=== PATIENT | male | born 1960 | race Caucasian/White ===

== ENCOUNTER → 2018-01-28 | Outpatient (CLI) | payer OTHER ==
[~2018-01-28] MED LIST: HYDROCODON-ACE1 EAC7 PO
--- NOTE | 2018-02-05 16:42 | PROC ---
[address] [address] PROCEDURE REPORT Name: WARDJAZMINEJAMI Room: [facility]#: [id number] Admission: 01/28/18 Attend Phys: Juan Pablo Vee MD Discharge: Date of : 60 Report #: [id number] THIS REPORT FOR: //name// CC: Juan Pablo Cardona DATE OF SERVICE: 01/28/2018 REFERRING PHYSICIANS: Include Dr. Henry, who is his primary care physician and also Dr. Ernetsine Rudolph as well as Dr. Cardona. PROCEDURE: Nasopharyngolaryngoscopy. PRIMARY SITE AND HISTOPATHOLOGY: The patient received chemotherapy and radiation therapy for a stage III, T2N1M0, supraglottic cancer. The radiation therapy was completed on 10/29/2016. [facility] phone is [phone]. FINDINGS: On nasopharyngolaryngoscopy, after application of 2% viscous lidocaine orally and then 2% viscous lidocaine to the right nostril via a cotton swab, there were no visible lesions in the nasopharynx, there were no visible lesions in the hypopharynx, there were no visible lesions in the supraglottic area. The true vocal cords were normally mobile bilaterally without any visible lesions. There is no evidence of head and neck cancer. <ELECTRONICALLY SIGNED> By: Juan Pablo Vee MD 02/05/18 1642 1207 [id number] Pablo Vee MD /nt
--- NOTE | 2018-02-05 17:48 | ONC ---
[address] [address] RADIATION ONCOLOGY NOTE Name: WARDJAZMINEJAMI Wyatt Room: [facility]#: [id number] Admission: 01/28/18 Attend Phys: Juan Pablo Vee MD Discharge: Date of : 60 Report #: [id number] THIS REPORT FOR: //name// CC: Juan Pablo Cardona DATE OF SERVICE: 01/28/2018 RADIATION ONCOLOGY FOLLOWUP NOTE REFERRING PHYSICIANS: Include Dr. Henry and Dr. Ernestine Rudolph and also Vinay Cardona DO. [facility] phone is [phone]. PRIMARY SITE AND HISTOPATHOLOGY: The patient received chemotherapy/radiation therapy for a stage III supraglottic cancer. The radiation therapy was completed on 10/29/2016. INTERVAL NOTE: The patient continues to eat a regular diet. He eats food such as hamburgers and spaghetti. SOCIAL HISTORY: The patient continues to smoke cigarettes. He smokes about 1-2 cigarettes a day. REVIEW OF SYSTEMS: RESPIRATORY: The patient was not short of breath during his appointment. MUSCULOSKELETAL: He had normal range of motion in his extremities. PHYSICAL EXAMINATION: VITAL SIGNS: The patient was 161.6 pounds on 01/28/2018, he was 160 pounds on 09/06/2017. On 01/28/2018, blood pressure was 144/94, pulse 71, respirations 18, oxygen saturation 98%. LYMPH NODES: He had no palpable cervical or supraclavicular lymphadenopathy. HEAD, EYES, EARS, NOSE, THROAT: Mouth had no suspicious visible lesions or suspicious palpable lesions. On nasopharyngolaryngoscopy after administration of a small amount of 2% viscous lidocaine orally and 2% viscous lidocaine via a cotton swab to the left nostril, there were no visible lesions in the nasopharynx. There were no visible lesions in the oropharynx. There were no visible lesions in the hypopharynx [place] [address] RADIATION ONCOLOGY NOTE Name: JAMI LOMAX Room: [facility]#: [id number] Admission: 01/28/18 Attend Phys: Juan Pablo Vee MD Discharge: Date of : 60 Report #: [id number] and the true vocal cords were normally mobile bilaterally without any visible lesions. HEART: Had a regular rate and rhythm without murmur. LUNGS: were clear to auscultation. ABDOMEN: Soft with positive bowel sounds. LABORATORY DATA: From 01/14/2018, white blood count was 7.3, hemoglobin 14.0, platelets 289,000. BUN 8, creatinine 0.92. Sodium 139, potassium 4.6. PSA was 1.6. The patient's last TSH was on 08/20/2017, was within normal limits at 2.453. RADIOLOGIC DATA: The patient had a PET/CT scan on 08/20/2017, which revealed stable mild uptake at the site of the prior tumor area, which could be inflammation in that area and he also had some mild activity in the left inguinal region and he also had bilateral femoral head avascular necrosis. ASSESSMENT AND PLAN: 1. History of supraglottic cancer- There is no evidence of supraglottic cancer at this time. The patient has an appointment with his medical oncologist, Dr. Rudolph in 04/2018. Dr. Rudolph ordered lab work and a neck and chest CT on 05/02/2018, and I gave the patient a requisition for a TSH level in 06/2018 or 07/2018 and the patient was asked to schedule a follow up appointment to see me afterwards. 2. Anxiety- The patient asked for a refill for clonazepam, so I prescribed enought to last him until he can see his primary care physician in about a month. 3. Dental care- The patient was given a prescription for dental gel fluoride. 4. Cigarette smoking- The patient was urged to completely quit smoking. 5. Avascular necrosis of hips. The patient indicated he saw the orthopedic surgeon, who I think was Dr. Garcia, and he is observing the patient since he is asymptomatic. Thank you for allowing me to participate in the care of this patient. <ELECTRONICALLY SIGNED> By: Juan Pablo Vee MD 02/05/18 1748 1328 [id number] Vee MD /nt
== END ==
LOC: M.RTH 01-26 09:15
DX: Z08 Encounter for follow-up examination after completed treatment for malignant neoplasm (principal); F41.9 Anxiety disorder, unspecified; F17.210 Nicotine dependence, cigarettes, uncomplicated; M87.9 Osteonecrosis, unspecified; Z85.21 Personal history of malignant neoplasm of larynx

== ENCOUNTER → 2018-05-27 | Outpatient (CLI) | payer OTHER ==
--- NOTE | 2018-06-23 02:00 | ONC ---
[place] [address] RADIATION ONCOLOGY NOTE Name: WARDJAZMINEJAMI Wyatt Room: [facility]#: [id number] Admission: 05/27/18 Attend Phys: Juan Pablo Vee MD Discharge: Date of : 60 Report #: [id number] THIS REPORT FOR: //name// CC: Juan Pablo Cardona DATE OF PROCEDURE: 05/27/2018 [facility] phone is [phone]. REFERRING PHYSICIANS: Nimo Henry DO, Ernestine Rudolph MD, Chris Guzman DO and Vinay Cardona DO. PRIMARY SITE AND HISTOPATHOLOGY: The patient received chemotherapy and radiation therapy for a stage III, T2N1M0, supraglottic cancer. The radiation therapy was completed on 10/29/2016. PROCEDURE: Nasopharyngolaryngoscopy. FINDINGS: On nasopharyngolaryngoscopy, after application of 2% viscous lidocaine orally and 2% viscous lidocaine to the right nostril via a cotton swab, there were no visible lesions in the nasopharynx. There were no visible lesions in the hypopharynx. There were no visible lesions in the supraglottic larynx. The true vocal cords were normally mobile bilaterally without any visible lesions. There was no evidence of head and neck cancer. Thank you for allowing me to participate in the care of this patient. <ELECTRONICALLY SIGNED> By: Juan Pablo Vee MD 06/23/18 0200 1247 [id number] Vee MD /nt
--- NOTE | 2018-06-23 02:09 | ONC ---
[address] [address] RADIATION ONCOLOGY NOTE Name: WARDJAZMINEJAMI Room: [facility]#: [id number] Admission: 05/27/18 Attend Phys: Juan Pablo Vee MD Discharge: Date of : 60 Report #: [id number] THIS REPORT FOR: //name// CC: Juan Pablo Henry DATE OF SERVICE: 05/27/2018 REFERRING PHYSICIANS: Dr. Henry; Dr. Chris Bo; Dr. Vinay Cardona and Ernestine Rudolph MD. [facility] phone is [phone]. PRIMARY SITE AND HISTOPATHOLOGY: The patient received chemotherapy and radiation therapy for a stage III supraglottic cancer. The radiation therapy was completed on 10/29/2016. INTERVAL NOTE: The patient was having some refered pain to his ear. He was eating a hot sauce and biscuits, which may have exacerbated some of these issues. He does take sometimes 2-3 supplements a day. He has a new job installing fence. He saw his dentist approximately at the end of 04/2018. SOCIAL HISTORY: The patient was continuing to smoke cigarettes. He smokes about 1-2 cigarettes a day. REVIEW OF SYSTEMS: RESPIRATORY: The patient was not short of breath during his appointment. MUSCULOSKELETAL: He had good range of motion in his upper extremities. PHYSICAL EXAMINATION: VITAL SIGNS: The patient weighed 162.2 pounds on 05/27/2018, 161.6 pounds on 01/28/2018. On 05/27/2018, blood pressure was 138/78, pulse 66. LYMPH NODES: No palpable cervical or supraclavicular lymphadenopathy. HEAD, EYES, EARS, NOSE AND THROAT: Mouth had no suspicious visible lesions or suspicious palpable lesions. On nasopharyngolaryngoscopy after administration of a small amount of 2% viscous lidocaine orally, 2% viscous lidocaine via a cotton swab to left nostril, there were no visible lesions in the nasopharynx. There were no visible lesions in the oropharynx. There were no visible lesions in the hypopharynx or supraglottic larynx. True vocal cords were normally mobile bilaterally without visible lesions. HEART: Had a regular rate and rhythm without murmur. LUNGS: Clear to auscultation. LABORATORY DATA: From 05/13/2018, TSH was elevated at 17.3 and so He was placed on 50 mcg of levothyroxine per [place] [address] RADIATION ONCOLOGY NOTE Name: JAMI LOMAX Room: [facility]#: [id number] Admission: 05/27/18 Attend Phys: Juan Pablo Vee MD Discharge: Date of : 60 Report #: [id number] with hypothyroidism. On 05/13/2018, his hemoglobin was 14.2, platelets 294,000, white blood cells were 8.2. Sodium 136, potassium 5.1, BUN 8, creatinine 1.14. AST was 22. ASSESSMENT AND PLAN: 1. History of supraglottic cancer-There is no evidence of supraglottic cancer at this time. He was given a requisition for a basic metabolic panel, neck CT in 08/2018 and he was asked to schedule a followup appointment to see me afterwards. 2. Hypothyroidism- The patient was started on 50 mcg of levothyroxine and TSH was ordered in about 08/2018 and he was asked to schedule a followup appointment to see me afterwards. 3. Dental care- The patient was given a prescription for 1.1% PreviDent gel. 4. Cigarette smoking- The patient was encouraged to quit smoking. Thank you for allowing me to participate in the care of this patient. <ELECTRONICALLY SIGNED> By: Juan Pablo Vee MD 06/23/18 0209 1253 1649Darand Vee MD /nt
== END ==
LOC: M.RTH 04:43
DX: Z08 Encounter for follow-up examination after completed treatment for malignant neoplasm (principal); E03.9 Hypothyroidism, unspecified; F17.210 Nicotine dependence, cigarettes, uncomplicated; Z85.21 Personal history of malignant neoplasm of larynx

== ENCOUNTER → 2018-12-16 | Outpatient (CLI) | payer OTHER ==
--- NOTE | ~2018-12-16 | ONC ---
[address] [address] RADIATION ONCOLOGY NOTE Name: JAMI LOMAX Room: [facility]#: [id number] Admission: 12/16/18 Attend Phys: Juan Pablo Vee MD Discharge: Date of : 60 Report #: [id number] THIS REPORT FOR: //name// CC: Juan Pablo Ramankkula DATE OF SERVICE: 12/16/2018 RADIATION ONCOLOGY FOLLOWUP NOTE REFERRING PHYSICIANS: Include Dr. Abby Li and Dr. Vinay Cardona that Dr. Ernestine Rudolph. [facility] phone is [phone]. PRIMARY SITE AND HISTOPATHOLOGY: The patient received chemotherapy and radiation therapy for stage 3 supraglottic cancer. The radiation therapy was completed on 10/29/2016. INTERVAL NOTE: The patient is eating a regular diet. His voice quality is good. SOCIAL HISTORY: The patient now rarely smokes. REVIEW OF SYSTEMS: RESPIRATORY: The patient was not short of breath during his appointment. MUSCULOSKELETAL: He has good range of motion in his upper extremities. PHYSICAL EXAMINATION: VITAL SIGNS: The patient weighed 169.4 pounds on 12/16/2018, 160.2 pounds 05/27/2018 and on 12/16/2018, blood pressure was 156/84, pulse 65, oxygen saturation 99%, respirations 18. LYMPH NODES: The patient had no palpable cervical or supraclavicular lymphadenopathy. HEAD, EYES, EARS, NOSE AND THROAT: Mouth had no suspicious visible lesions or suspicious palpable lesions. On nasopharyngolaryngoscopy, after administration of a small amount of 2% viscous lidocaine orally and 2% viscous lidocaine via cotton swab to the left nostril, there were no visible lesions in the nasopharynx. There were no visible lesions in the oropharynx. There were no visible lesions in the hypopharynx or supraglottic larynx. The true vocal cords are normally mobile bilaterally without any visible lesions. HEART: Had a regular rate and rhythm without murmur. LUNGS: Clear to auscultation. LABORATORY DATA: From 12/13/2018, sodium 138, potassium 4.4, BUN 16, creatinine 0.97. TSH was 2.49 and that is with him taking 50 mcg [place] [address] RADIATION ONCOLOGY NOTE Name: JAMI LOMAX Room: [facility]#: [id number] Admission: 12/16/18 Attend Phys: Juan Pablo Vee MD Discharge: Date of : 60 Report #: [id number] MEDICATIONS: Albuterol, clonazepam as needed, 50 mcg of levothyroxine per day and dental gel. RADIOLOGIC DATA: The patient had a neck CT scan on 12/13/2018 which revealed post-therapeutic changes in the hypopharyngeal and supraglottic area. There is no cervical lymphadenopathy and there was some chronic sphenoid sinus mucoperiosteal thickening. ASSESSMENT AND PLAN: 1. History of supraglottic cancer. There is no evidence of supraglottic cancer at this time. The patient was given a requisition for basic metabolic panel and TSH level in 06/2019. The patient was asked to schedule a followup appointment to see me afterwards. 2. Hypothyroidism. The patient's TSH is within normal levels with him taking 50 mcg of levothyroxine per day. He was given a refill for levothyroxine and he was given requisition for a basic metabolic panel and TSH in 06/2019 and he was asked to follow up with me afterwards. 3. Dental care. The patient was given a prescription for 1.1% PreviDent gel. 4. Cigarette smoking. The patient was encouraged to fully quit smoking. 5. Possible sinusitis. The patient was given a prescription for Augmentin for possible sinusitis since he thought he had some symptoms consistent with that as well as some fatigue. Thank you very much for allowing me to participate in the care of this patient. By: [id number] [id number] Pablo Vee MD /erwin
--- NOTE | ~2018-12-16 | ONC ---
[address] [address] RADIATION ONCOLOGY NOTE Name: JAMI LOMAX LOYD Room: [facility].#: [id number] Admission: 12/16/18 Attend Phys: Juan Pablo Vee MD Discharge: Date of : 60 Report #: [id number] THIS REPORT FOR: //name// CC: Juan Pablo Bo RADIATION ONCOLOGY PROCEDURE NOTE REFERRING PHYSICIANS: His primary care physician is Dr. Abby Li, also Ernestine Rudolph MD and Dr. Vinay Cardona. [facility] phone is [phone]. PRIMARY SITE AND HISTOPATHOLOGY: The patient received chemotherapy and radiation therapy for stage 3, T2 N1 M0 supraglottic cancer. The radiation therapy was completed on 10/29/2016. PROCEDURE: Nasopharyngolaryngoscopy. FINDINGS: On nasopharyngolaryngoscopy, after application of 2% viscous lidocaine orally and 2% viscous lidocaine to the right nostril via cotton swab, there were no visible lesions in the nasopharynx, there are no visible lesions in the hypopharynx, there were no visible lesions in the supraglottic larynx. The true vocal cords are normally mobile bilaterally without any visible lesions. There is no evidence of head and neck cancer. Thank you for allowing me to participate in the care of this patient. By: [id number] [id number] jensen Zuleta
== END ==
LOC: M.RTH 07-15 09:15
DX: Z08 Encounter for follow-up examination after completed treatment for malignant neoplasm (principal); E03.9 Hypothyroidism, unspecified; F17.210 Nicotine dependence, cigarettes, uncomplicated; Z92.3 Personal history of irradiation; Z85.21 Personal history of malignant neoplasm of larynx; Z79.899 Other long term (current) drug therapy

== ENCOUNTER → 2020-02-02 | Outpatient (CLI) | payer OTHER ==
--- NOTE | ~2020-02-02 | ONC ---
[address] [address] RADIATION ONCOLOGY NOTE Name: JAMI LOMAX Room: [facility]#: [id number] Admission: 02/02/20 Attend Phys: Juan Pablo Vee MD Discharge: Date of : 60 Report #: [id number] THIS REPORT FOR: //name// CC: Juan Pablo Bo DATE OF SERVICE: 02/02/2020 RADIATION ONCOLOGY FOLLOWUP NOTE REFERRING PHYSICIANS: Include Dr. Ju Franz as well as Dr. Chris Bo, Dr. Lorraine Li, Dr. Vinay Cardona, Dr. Ernestine Rudolph. [facility] phone is [phone]. PRIMARY SITE AND HISTOPATHOLOGY: The patient received chemotherapy and radiation therapy for stage 3 supraglottic cancer. The radiation therapy was completed on 10/29/2016. INTERVAL NOTE: The patient is eating a regular diet. His voice quality is good. He continues to smoke cigarettes. SOCIAL HISTORY: The patient continues to smoke cigarettes. He started smoking around the age of 28 and he smokes less than 1 pack per day. REVIEW OF SYSTEMS: RESPIRATORY: The patient was not short of breath during his appointment. MUSCULOSKELETAL: He had good range of motion of his upper extremities. PHYSICAL EXAMINATION: VITAL SIGNS: The patient weighed 177 pounds on 02/02/2020 and he weighed 169.4 pounds on 12/16/2018. On 02/02/2020, blood pressure is 144/78, pulse 84, oxygen saturation 97% on room air, respirations 20, temperature 98.6 degrees Fahrenheit. LYMPH NODES: The patient had no palpable cervical or supraclavicular lymphadenopathy. HEAD, EYES, EARS, NOSE AND THROAT: Mouth had no suspicious visible lesions or suspicious palpable lesions. On nasopharyngolaryngoscopy, after administration of a small amount of 2% viscous lidocaine orally and 2% viscous lidocaine via cotton swab to left nostril, there were no visible lesions in the nasopharynx, no visible lesions in the oropharynx. There were no visible lesions in the hypopharynx or supraglottic larynx. The true vocal cords are normally mobile bilaterally. HEART: Had a regular rate and rhythm without murmur. LUNGS: [place] [address] RADIATION ONCOLOGY NOTE Name: DAMIJAMI LOYD Room: [facility]#: [id number] Admission: 02/02/20 Attend Phys: Juan Pablo Vee MD Discharge: Date of : 60 Report #: [id number] LABORATORY DATA: From 01/03/2020, white blood count was 8.6, hemoglobin 13.6, platelets were 255,000. BUN was 12, creatinine 0.96. Sodium 142, potassium 4.3. TSH was elevated at 10.43 with the patient taking 50 mcg of levothyroxine per day, so that was increased to 75 mcg per hour of levothyroxine per day by his primary care physician and his medications include, 75 mcg of levothyroxine per day as well as albuterol inhaler. RADIOLOGIC DATA: The patient had a neck CT on 01/16/2020 which showed post-treatment changes and some mild apical emphysema. ASSESSMENT AND PLAN: 1. History of supraglottic cancer. There is no evidence of supraglottic cancer at this time. The patient had a basic metabolic panel ordered in about 6 months and follow up with a neck CT and the patient was asked to follow up with me afterwards. 2. Hypothyroidism. The patient's primary care physician is prescribing the patient's levothyroxine for him. The patient's TSH was elevated with him taking 50 mcg of levothyroxine per day, so that was raised to 75 mcg of levothyroxine per day. TSH was ordered in about 6 months. The patient was asked to schedule a followup appointment to see me afterwards. 3. Dental care. The patient was given a prescription 1.1% PreviDent paste. 4. Cigarette smoking. The patient was encouraged to quit smoking. A low dose screening chest CT without contrast was ordered in about 6 months. The patient was asked to schedule a followup appointment to see me afterwards. Thank you for allowing me to participate in the care of this patient. By: [id number] [id number] Pablo Vee MD /erwni
--- NOTE | ~2020-02-02 | ONC ---
[address] [address] RADIATION ONCOLOGY NOTE Name: JAMI LOMAX Room: [facility]#: [id number] Admission: 02/02/20 Attend Phys: Juan Pablo Vee MD Discharge: Date of : 60 Report #: [id number] THIS REPORT FOR: //name// CC: Juan Pablo Bo DATE OF SERVICE: 02/02/2020 PROCEDURE NOTE REFERRING PHYSICIANS: Include Dr. Brittany Franz, Ernestine Rudolph MD, Dr. Vinay Cardona, Dr. Chris Bo, Dr. Kamila Li at [facility]. [facility] phone is [phone]. PRIMARY SITE AND HISTOPATHOLOGY: The patient received chemotherapy and radiation therapy for stage 3 T2 N1 M0 supraglottic cancer. The radiation therapy was completed on 10/29/2016. PROCEDURE: Nasopharyngolaryngoscopy. FINDINGS: On nasopharyngolaryngoscopy, after application of 2% viscous lidocaine orally and 2% viscous lidocaine to the right nostril via cotton swab, there were no visible lesions in the nasopharynx and no visible lesions in the hypopharynx and no visible lesions in the supraglottic larynx. The true vocal cords were normally mobile bilaterally without any visible lesions. There was no evidence of head and neck cancer. Thank you for allowing me to participate in the care of this patient. By: 1346 [id number] Vee MD /erwin
== END ==
LOC: M.RTH 10-20 09:45
PROVIDERS: ATTEND Radiology Radiation Oncology
DX: E03.9 Hypothyroidism, unspecified (principal); F17.210 Nicotine dependence, cigarettes, uncomplicated; Z85.21 Personal history of malignant neoplasm of larynx